=== PATIENT | male | born 1995 | race Caucasian/White ===

== ENCOUNTER 2018-07-08 19:07 | Emergency (ER) | payer MEDICAID ==
[~2018-07-08] VITALS: Ht 175.3 cm; Wt 90.9 kg
[2018-07-08 20:13] VITALS: BP 117/66
== END 2018-07-08 20:14 | disposition home or self-care (01) ==
LOC: ED 19:07
DX: S93.401A Sprain of unspecified ligament of right ankle, initial encounter (principal); X50.1XXA Overexertion from prolonged static or awkward postures, initial encounter; Y92.009 Unspecified place in unspecified non-institutional (private) residence as the place of occurrence of the external cause
CPT/HCPCS: 13854; L4396